=== PATIENT | male | born 1965 | race Caucasian/White ===

== ENCOUNTER → 2017-08-28 | Outpatient (CLI) | payer OTHER | END | disposition home or self-care (01) | LOC: PCVCIMAG 10:11 | DX: I10 Essential (primary) hypertension (principal); R07.9 Chest pain, unspecified; R06.09 Other forms of dyspnea; E78.5 Hyperlipidemia, unspecified; R00.2 Palpitations | CPT/HCPCS: 93325; 93351 ==